=== PATIENT | female | born 1990 | race Caucasian/White ===

== ENCOUNTER 2017-03-14 16:48 | Emergency (ER) | payer SELFPAY ==
[2017-03-14 18:14] VITALS: BP 131/68
--- NOTE | 2017-03-14 18:28 | UC ---
Respiratory Complaint HPI - History of Current Complaint Chief Complaint: UCRespiratory Stated Complaint: COUGH,TROUBLE BREATHING Time Seen by Provider: 03/14/17 18:20 Hx Obtained From: Patient Hx Last Menstrual Period: December end of ?: No Onset/Duration: Sudden Onset - URI symptoms., Worse Since - last 2 days with tightness in the chest/ throat. Timing: Constant Severity Initially: Mild Severity Currently: Moderate Character: Cough: Nonproductive Alleviating Factors: Nothing Associated Signs And Symptoms: Positive: Dyspnea, URI, Nasal Congestion - Allergies/Home Medications Allergies/Adverse Reactions: Allergies Allergy/AdvReac Type Severity Reaction Status Date / Time No Known Allergies Allergy Verified 03/14/17 18:15 PMH/Surg Hx/FS Hx/Imm Hx Respiratory History: Asthma - as a child. - Surgical History Surgical History: None - Family History Known Family History: Positive: Cardiac Disease, Hypertension Negative: Diabetes - Social History Occupation: Employed Full-time Lives: Alone Alcohol Use: Occasionally Substance Use Type: None Smoking Status (MU): Never Smoked Tobacco Review of Systems ENT: Sore Throat, Nasal Discharge Respiratory: Shortness Of Breath, Cough All Other Systems Reviewed And Are Negative: Yes Physical Exam Triage Information Reviewed: Yes Appearance: No Pain Distress, Ill-Appearing - mild, Obese Vital Signs: Initial Vital Signs Temp 98 F 03/14/17 18:07 Pulse 75 03/14/17 18:07 Resp 20 03/14/17 18:07 BP 131/68 03/14/17 18:07 Vital Signs Reviewed: Yes Eyes: Positive: Conjunctiva Clear ENT: Positive: Pharynx normal, TMs normal Neck exam: Normal Respiratory: Positive: Wheezing - diffuse mild end expiratory wheeze Cardiovascular Exam: Normal Musculoskeletal Exam: Normal Neurological Exam: Normal Psychological Exam: Normal Skin Exam: Normal Respiratory Course/Dx - Differential Dx/Diagnosis Differential Diagnosis/HQI/PQRI: Asthma, Lower Resp Infection, Sinusitis Provider Diagnoses: Acute URI. Acute bronchospasm Discharge - Discharge Plan Condition: Stable Disposition: HOME Prescriptions: Albuterol HFA INHALER* [Ventolin HFA Inhaler*] 2 puff INH Q4H PRN #1 mdi PRN Reason: Cough predniSONE TAB* [Deltasone TAB*] 20 mg PO DAILY #18 tab Patient Education Materials: Upper Respiratory Infection (ED), Bronchospasm (ED ), Prednisone (By mouth), Albuterol (By breathing)
== END 2017-03-14 18:39 | disposition home or self-care (01) ==
LOC: UCCORT 16:48
DX: J06.9 Acute upper respiratory infection, unspecified (principal); J98.01 Acute bronchospasm
CPT/HCPCS: 99202; G0463